=== PATIENT | female | born 1975 | race Caucasian/White ===

== ENCOUNTER 2022-02-26 12:44 | Emergency (ER) | payer OTHER ==
[~2022-02-26] VITALS: Ht 152.4 cm; Wt 72.6 kg
[~2022-02-26 12:44] MED LIST: GABA600 PO; Prozac20 MG PO; TRAM50 PO
== END 2022-02-26 16:36 | disposition home or self-care (01) ==
LOC: ER 12:44
DX: M54.2 Cervicalgia (principal); G89.29 Other chronic pain; W18.40XA Slipping, tripping and stumbling without falling, unspecified, initial encounter; Z91.030 Bee allergy status; Z88.5 Allergy status to narcotic agent; Z91.018 Allergy to other foods; Z79.899 Other long term (current) drug therapy; Z87.891 Personal history of nicotine dependence
CPT/HCPCS: 72125; 96374; 99284-25; J1885

== ENCOUNTER 2023-03-05 15:20 | Emergency (ER) | payer OTHER ==
[~2023-03-05] VITALS: Ht 152.4 cm; Wt 72.6 kg
[2023-03-05 17:57] VITALS: BP 133/96
== END 2023-03-05 18:39 | disposition home or self-care (01) ==
LOC: ER 15:20
DX: M25.512 Pain in left shoulder (principal); W50.0XXA Accidental hit or strike by another person, initial encounter; Z79.899 Other long term (current) drug therapy; Z87.891 Personal history of nicotine dependence
CPT/HCPCS: 73030; 96372; 99283-25; A9270; J1885

== ENCOUNTER 2023-03-14 08:52 | Emergency (ER) | payer OTHER ==
[~2023-03-14] VITALS: Ht 152.4 cm; Wt 69.8 kg
[2023-03-14 09:50] VITALS: BP 135/100
[2023-03-14] MEDS ORDERED: SUBOXONE 12 MG1 EACH SL (11:50)
== END 2023-03-14 12:02 | disposition home or self-care (01) ==
LOC: ER 08:52
DX: F11.93 Opioid use, unspecified with withdrawal (principal); Z91.030 Bee allergy status; Z91.018 Allergy to other foods; Z79.899 Other long term (current) drug therapy; Z87.891 Personal history of nicotine dependence
CPT/HCPCS: 99283; A9270